=== PATIENT | female | born 1970 | race Caucasian/White ===

== ENCOUNTER → 2017-05-05 | Outpatient (CLI) | payer OTHER ==
[2017-05-05 09:38] LABS: BILIRUBIN,URINE NEGATIVE (NEGATIVE); CLARITY/URINE CLEAR (CLEAR); COLOR,URINE YELLOW (YELLOW); GLUCOSE,URINE NEGATIVE (NEGATIVE); KETONES,URINE NEGATIVE (NEGATIVE); LEUKOCYTE ESTERASE ,URINE NEGATIVE (NEGATIVE); NITRITE, URINE NEGATIVE (NEGATIVE); PROTEIN URINE NEGATIVE (NEGATIVE); UROBILINOGEN,URINE 0.2 (0.2-1.0)
[2017-05-05 09:39] LABS: BASOPHILS % (AUTO) 0.6 % (0.0-2.0); EOSINOPHILS # (AUTO) 0.1 K/uL (0.0-0.4); EOSINOPHILS % (AUTO) 2.8 % (0.0-4.0); HEMOGLOBIN 14.7 g/dL (12.0-16.0); LYMPHOCYTES # (AUTO) 1.4 K/uL (1.0-5.5); LYMPHOCYTES % (AUTO) 27.6 % (20.5-51.5); MEAN CORPUSCULAR HEMOGLOBIN 29 pg (27-31); MEAN CORPUSCULAR HGB CONC 33 % (32-36); MEAN CORPUSCULAR VOLUME 89 fL (79.0-98.0); MONOCYTES # (AUTO) 0.4 K/uL (0.0-1.0); MONOCYTES % (AUTO) 7.1 % (1.7-9.3); NEUTROPHILS # (AUTO) 3.2 K/uL (1.8-7.7); NEUTROPHILS % (AUTO) 61.9 % (40.0-70.0); PLATELET COUNT (AUTO) 236 K/uL (130-430); RED BLOOD CELL COUNT(AUTO) 5.07 MIL/uL (4.2-6.2); RED CELL DISTRIBUTION WIDTH 11.7 % (9.0-15.0); WHITE BLOOD COUNT (AUTO) 5.1 K/uL (4.8-10.8)
[2017-05-05 09:43] LABS: BLOOD, URINE TRACE (NEGATIVE)
[2017-05-05 09:52] LABS: INR 0.9 (0.8-1.2)
[2017-05-05 10:02] LABS: ALANINE AMINOTRANSFERASE 70 U/L (12-78); ANION GAP 5 (5-15); ASPARTATE AMINOTRANSFERASE 46 U/L (10-37); CALCIUM 9.1 mg/dL (8.4-11.0); CHLORIDE 103 mmol/L (98-107); CHOLESTEROL 264 mg/dL (<200); CREATININE 0.66 mg/dL (0.55-1.30); GLUCOSE 109 mg/dL (70-99); HDL CHOLESTEROL 48 mg/dL (>55); LDL CHOLESTEROL 204 mg/dL (<100); POTASSIUM 3.9 mmol/L (3.5-5.1); SODIUM SERUM 137 mmol/L (136-145); THYROID STIMULATING HORMONE 1.35 uIu/mL (0.34-4.82); TOTAL BILIRUBIN 0.6 mg/dL (0.0-1.0); TOTAL PROTEIN, SERUM 7.8 g/dL (6.4-8.3); TRIGLYCERIDES 146 mg/dL (30-150); UREA NITROGEN, BLOOD 16 mg/dL (8-21)
[2017-05-05 10:03] LABS: C-REACTIVE PROTEIN QUANT < 0.2 mg/dL (0-0.5); GFR AFRICAN AMERICAN 124 mL/min (>90)
[2017-05-05 10:12] LABS: BACTERIA,URINE FEW /HPF (None Seen); MUCUS,URINE 1+ /LPF (None Seen); RBC,URINE 0-3 /HPF (0-3); WBC,URINE 0-3 /HPF (0-3)
[2017-05-05 10:15] LABS: ERYTHROCYTE SEDIMENTATION RATE 8 MM/HR (0-20)
[2017-05-09 11:09] LABS: PROTEIN S, TOTAL 174
[2017-05-09 12:22] LABS: CORTISOL (SERUM) 7.5 ug/dL (.); ESTROGENS, TOTAL 64 pg/mL (.); FOLLICLE STIMULATION HORMONE 54.2 mIU/mL (.); LUETENIZING HORMONE 32.3 mIU/mL (.); PROTEIN C ANTIGEN 119 % (60-150); PROTEIN S ACTIVITY 113 % (63-140); PROTEIN S, FREE 119 % (57-157); TESTOSTERONE, TOTAL SERUM 19 ng/dL (8-48)
[2017-05-09 14:30] LABS: HEMOGLOBIN A1C 5.7 % (4.8-5.6)
[2017-05-09 14:32] LABS: FOLATE (FOLIC ACID) >20.0 ng/mL (>3.0)
== END | disposition home or self-care (01) ==
LOC: SLB 08:29
PROVIDERS: ATTEND Internal Medicine
DX: F43.23 Adjustment disorder with mixed anxiety and depressed mood (principal); N95.2 Postmenopausal atrophic vaginitis
CPT/HCPCS: 36415; 80053; 80061; 81000-TC; 82306; 82533; 82607; 82627; 82672; 82746; 83001; 83002; 83036; 84403; 84443-TC; 85025; 85302; 85305; 85306; 85610-TC; 85651-TC; 85730-TC; 86140

== ENCOUNTER 2017-09-28 09:42 | Outpatient (CLI) | payer OTHER ==
[2017-09-28] MEDS ORDERED: DIATR MEGLU/DIATRIZ SOD 30 ML SOLUTION PO ONE (11:55)
[2017-09-28] MEDS ORDERED: IOHEXOL 100 ML IV ONE (13:39)
== END 2017-09-28 20:35 | disposition home or self-care (01) ==
LOC: SUS 09:42
PROVIDERS: ATTEND Internal Medicine
DX: K76.0 Fatty (change of) liver, not elsewhere classified (principal); R16.0 Hepatomegaly, not elsewhere classified; N20.0 Calculus of kidney; D25.9 Leiomyoma of uterus, unspecified
CPT/HCPCS: 74177; 76700; 76830; 76857; Q9964; Q9967

== ENCOUNTER 2018-03-03 16:18 | Emergency (ER) | payer OTHER ==
[~2018-03-03] VITALS: Ht 162.6 cm; Wt 70.3 kg
[2018-03-03 16:18] VITALS: BP_SYST 120
[2018-03-03 16:59] LABS: CREATININE 0.65 mg/dL (0.55-1.30); POTASSIUM 3.9 mmol/L (3.5-5.1)
[2018-03-03 17:04] LABS: ALBUMIN 3.8 g/dL (3.4-4.8); INR 0.9 (0.8-1.2); PROTHROMBIN TIME 9.6 SECS (9.5-12.5); TOTAL BILIRUBIN 0.3 mg/dL (0.0-1.0)
[2018-03-03 17:05] LABS: EOSINOPHILS # (AUTO) 0.1 K/uL (0.0-0.4); EOSINOPHILS % (AUTO) 1.8 % (0.0-4.0); MONOCYTES # (AUTO) 0.7 K/uL (0.0-1.0)
[2018-03-03 17:07] LABS: BASOPHILS % (AUTO) 0.4 % (0.0-2.0); HEMATOCRIT 43.7 % (36-48); HEMOGLOBIN 14.4 g/dL (12.0-16.0); LYMPHOCYTES # (AUTO) 2.6 K/uL (1.0-5.5); LYMPHOCYTES % (AUTO) 32.6 % (20.5-51.5); MEAN CORPUSCULAR HEMOGLOBIN 30 pg (27-31); MEAN CORPUSCULAR HGB CONC 33 % (32-36); MEAN CORPUSCULAR VOLUME 89 fL (79.0-98.0); MONOCYTES % (AUTO) 8.3 % (1.7-9.3); NEUTROPHILS # (AUTO) 4.6 K/uL (1.8-7.7); NEUTROPHILS % (AUTO) 56.9 % (40.0-70.0); PLATELET COUNT (AUTO) 252 K/uL (130-430); RED BLOOD CELL COUNT(AUTO) 4.88 MIL/uL (4.2-6.2); RED CELL DISTRIBUTION WIDTH 11.4 % (9.0-15.0)
[2018-03-03] MEDS ORDERED: KETOROLAC TROMETHAMINE 30 MG VIAL IVP ONE (17:15)
[2018-03-03] MEDS ORDERED: KETOROLAC TROMETHAMINE 30 MG VIAL ONE (17:16)
== END 2018-03-03 18:15 | disposition home or self-care (01) ==
LOC: SED 16:18
DX: S46.012A Strain of muscle(s) and tendon(s) of the rotator cuff of left shoulder, initial encounter (principal); M54.12 Radiculopathy, cervical region; Z90.89 Acquired absence of other organs; W19.XXXA Unspecified fall, initial encounter; Y93.89 Activity, other specified; Y92.89 Other specified places as the place of occurrence of the external cause; Y99.8 Other external cause status
CPT/HCPCS: 36415; 70450; 71045; 72100; 72125; 73030; 80053; 82550; 83880; 84484; 85025; 85610; 85730; 93005; 96374; 99285; J1885